=== PATIENT | male | born 1955 | race Caucasian/White ===

== ENCOUNTER 2023-05-08 11:32 | Inpatient (IN) ==
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
[2023-05-08] MEDS ORDERED: LORazepam 2 MG/1 ML VIAL IM STA ×2 (12:25→14:13)
[2023-05-08] MEDS ORDERED: SODIUM CHLORIDE 0.9% 1,000 ML IV SCH (12:30)
[2023-05-08] MEDS ORDERED: LORazepam 2 MG/1 ML VIAL IM ONE (13:15)
[2023-05-08] MEDS ORDERED: LORazepam 1 MG/1 ML SYR ED Inj Use IM STA (14:18)
[2023-05-08] MEDS ORDERED: LORazepam 2 MG/1 ML VIAL IM PRN (15:01)
[2023-05-08 15:25] LABS: Basophils # (auto) 0.06 K/uL (0.00-0.20); Basophils % (auto) 1.1 %; Eosinophils # (auto) 0.54 K/uL (0.00-0.50); Eosinophils % (auto) 10.3 %; Hematocrit (blood only) 37.6 % (42.0-52.0); Hemoglobin 13.3 g/dl (14.0-18.0); Immature Granulocytes # (auto) 0.01 K/uL (0.01-0.20); Immature Granulocytes % (auto) 0.2 %; Lymphocytes # (auto) 1.55 K/uL (1.20-3.40); Lymphocytes % (auto) 29.5 %; Mean Corpuscular Hemoglobin 32.4 pg (25.0-34.0); Mean Corpuscular Hgb Conc 35.4 g/dL (32.0-36.0); Mean Corpuscular Volume 91.5 fL (80.0-100.0); Mean Platelet Volume 11.1 fL (9.4-12.4); Monocytes # (auto) 0.57 K/uL (0.11-0.59); Monocytes % (auto) 10.9 %; Neutrophils # (auto) 2.52 K/uL (1.40-6.50); Platelet Count 147 K/uL (130-400); RDW Coefficient of Variation 12.1 % (11.5-14.5); RDW Standard Deviation 40.8 fL (36.4-46.3); Red Blood Count 4.11 M/uL (4.70-6.10); White Blood Count 5.25 K/ul (4.8-10.8)
[2023-05-08 15:42] LABS: Albumin Level 3.9 gm/dl (3.4-5.0); Anion Gap 7 (3-11); Bilirubin,Total 0.5 mg/dl (0.2-1.0); Calcium 8.7 mg/dl (8.6-10.3); Carbon Dioxide 25 mmol/L (21-32); Chloride 106 mmol/L (98-107); Potassium 4.2 mmol/L (3.5-5.1); Sodium 138 mmol/L (136-145)
[2023-05-08 15:48] LABS: Alanine Aminotransferase 17 U/L (7-52); Albumin Globulin Ratio 2.2 (0.9-2); Alkaline Phosphatase 64 U/L (34-104); Aspartate Aminotransferase 24 U/L (13-39); BUN Creatinine Ratio 25.8 (10-20); Blood Urea Nitrogen 17 mg/dl (6-23); Est GFR (African American) 117.6 ml/min; Est GFR (Non-African American) 101.5 ml/min; Globulin 1.8 gm/dl (2.5-4.0); Glucose 64 mg/dl (70-99(Fasting)); Total Protein 5.7 gm/dl (6.0-8.3)
[2023-05-08 16:01] LABS: Thyroid Stimulating Hormone 7.601 uIu/ml (0.300-4.500)
--- NOTE | 2023-05-08 16:03 | XRay Report ---
XR chest 1V portable CLINICAL HISTORY: weakness TECHNIQUE: Single frontal radiograph of the chest was obtained. Comparison: Comparison is made to chest radiograph 01/19/2023 FINDINGS: No lines and tubes are seen. Cardiomegaly is noted. The lungs are clear. No evidence of pleural effus ion or pneumothorax. IMPRESSION: No acute chest disease. Cardiomegaly is noted. ACT 112: Negative or not required by law. Electronically signed by: Nico Munguia M.D. 05/08/2023 4:02 PM
[2023-05-08] MEDS ORDERED: LORazepam 1 MG/1 ML SYR ED Inj Use IV PRN (16:14)
[2023-05-08] MEDS ORDERED: DEXTROSE 50% 50 ML SYRINGE IV ONE ×3 (16:18→20:04)
--- NOTE | 2023-05-08 16:31 | CT Scan Report ---
CT OF THE HEAD WITHOUT CONTRAST CLINICAL HISTORY: combative COMPARISON STUDY: Head CT January 19, 2023. CT DOSE: 703.85 mGy.cm TECHNIQUE: Helical axial images of the head were obtained without IV contrast. Automated exposure con trol was utilized for the study. A dose lowering technique was utilized adhering to the principles o f ALARA. FINDINGS: No acute intracranial hemorrhage, midline shift or mass effect is present. Ossification kelvin ng the falx is unchanged. This is of no significance. The ventricular system is unremarkable. The bas al cisterns are patent. No extra-axial collections are present. There are no findings to suggest acut e dural sinus thrombosis or acute territorial infarct. No significant calvarial abnormalities are pre sent. Visualized portions of the sinuses and mastoid air cells are clear. IMPRESSION: No acute intracranial findings. ACT 112: Negative or not required by law. Electronically signed by: Miguel Gotti M.D. 05/08/2023 4:30 PM
[2023-05-08 16:44] LABS: T4 Free Thyroxine 0.75 ng/dl (0.61-1.60)
[2023-05-08] MEDS: QUEtiapine FUMARATE 100 MG TABLET PO STA ×2 (18:59→19:45)
[2023-05-08] MEDS ORDERED: HALOPERIDOL LACTATE 5 MG/ML 1 ML VIAL ONE (19:59)
[2023-05-08] MEDS ORDERED: HALOPERIDOL LACTATE 5 MG/ML 1 ML VIAL IV STA (20:03)
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
[2023-05-08] MEDS: D5W AND NSS 1,000 ML IV SCH (20:29)
[2023-05-08] MEDS ORDERED: bisacodyL 10 MG SUPP PR PRN (20:54)
[2023-05-08] MEDS ORDERED: ACETAMINOPHEN 325 MG TAB PO PRN (20:54)
[2023-05-08] MEDS ORDERED: DIVALPROEX SODIUM SPRINKLE/DEL-REL 125 MG CAP PO SCH (21:00)
[2023-05-08] MEDS ORDERED: DIVALPROEX EXTENDED RELEASE 250 MG TABCR PO SCH (21:00)
[2023-05-08] MEDS ORDERED: MIRTAZAPINE TAB 15 MG TAB PO SCH (21:00)
[2023-05-08] MEDS: BACITRACIN OINT 14 GM TUBE EXT SCH (23:07)
[2023-05-08] MEDS ORDERED: VALPROATE SOD 375 MG in DEXTROSE 5% 50 ML IV ONE (23:45)
[2023-05-08] MEDS: Patient's HEIGHT &/or WEIGHT Needed SCH (23:57)
[2023-05-09] MEDS: Patient's HEIGHT &/or WEIGHT Needed SCH ×2 (00:17→00:18)
[2023-05-09] MEDS: D5W AND NSS 1,000 ML IV SCH (05:03)
[2023-05-09] MEDS: DEXTROSE 5% IV SCH ×3 (06:23→19:01)
[2023-05-09] MEDS: VALPROATE SOD IV SCH ×3 (06:23→19:01)
[2023-05-09] MEDS ORDERED: VALPROATE SOD 250 MG in DEXTROSE 5% 50 ML IV SCH (08:00)
[2023-05-09] MEDS ORDERED: ASPIRIN 81 MG ECTAB PO SCH (09:00)
[2023-05-09] MEDS ORDERED: ATORVASTATIN 20 MG TAB PO SCH (09:00)
[2023-05-09] MEDS ORDERED: THIAMINE HCL 100 MG TAB PO SCH (09:00)
[2023-05-09] MEDS ORDERED: ARIPiprazole 5 MG TAB PO SCH (09:00)
[2023-05-09] MEDS ORDERED: PARoxetine HCL 20 MG TAB PO SCH (09:00)
[2023-05-09 09:23] LABS: Basophils # (auto) 0.05 K/uL (0.00-0.20); Basophils % (auto) 1.1 %; Eosinophils # (auto) 0.59 K/uL (0.00-0.50); Eosinophils % (auto) 12.7 %; Hematocrit (blood only) 39.6 % (42.0-52.0); Hemoglobin 13.8 g/dl (14.0-18.0); Immature Granulocytes # (auto) 0.01 K/uL (0.01-0.20); Immature Granulocytes % (auto) 0.2 %; Lymphocytes # (auto) 1.23 K/uL (1.20-3.40); Lymphocytes % (auto) 26.5 %; Mean Corpuscular Hemoglobin 31.6 pg (25.0-34.0); Mean Corpuscular Hgb Conc 34.8 g/dL (32.0-36.0); Mean Corpuscular Volume 90.6 fL (80.0-100.0); Mean Platelet Volume 10.6 fL (9.4-12.4); Monocytes # (auto) 0.53 K/uL (0.11-0.59); Monocytes % (auto) 11.4 %; Neutrophils # (auto) 2.23 K/uL (1.40-6.50); Neutrophils % (auto) 48.1 %; Platelet Count 141 K/uL (130-400); RDW Standard Deviation 39.7 fL (36.4-46.3); Red Blood Count 4.37 M/uL (4.70-6.10); White Blood Count 4.64 K/ul (4.8-10.8)
[2023-05-09 09:37] LABS: BUN Creatinine Ratio 12.9 (10-20); Calcium 8.1 mg/dl (8.6-10.3); Creatinine Clr Calc Pharmacy 114.9 ml/min; Est GFR (African American) 120.7 ml/min; Est GFR (Non-African American) 104.1 ml/min
[2023-05-09] MEDS: OLANZapine 10 MG/2.1 ML SDV IM PRN ×3 (10:35→22:07)
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
--- NOTE | 2023-05-09 11:54 | Hospitalist Progress Note ---
Date of Service May 09, 2023 Assessment & Plan (1) Aggression: Plan: -Aggressive behavior at alf noted in context of progressive Alzheimer's dementia over past several years -Zyprexa IM PRN for acute agitation -Continue Halle [place]te, Paxil, Remeron for now -Psychiatry consulted on admission -Will apparently need placement in locked dementia unit, case management to assist (2) Dementia: Plan: -See above (3) Hypoglycemia: Plan: -Noted hypoglycemia on admission to 60 -Improving with D5 1/2 NSS, continue until tolerating PO intake well with improved mental status -Monitor BMP (4) HLD (hyperlipidemia): Plan: -Continue statin (5) Superficial skin infection: Plan: -Patient noted to have BL superficial skin infection from apparent scratches -Has been afebrile with CBC wnl -Continue Bacitracin -Monitor Admission and Anticipated Discharge Date Admission Date: May 08, 2023 Supervising Physician Co-Signing Physician Notes ATTESTATION I also saw the patient and confirmed clarke portions of the history and exam. I agree with the impression and plan in the resident documentation, and as summarized below. EXAM Upon midmorning exam, the patient is somewhat restless, trying to get out of bed. Temporarily responds to redirection. No meaningful conversation obtained. Hemodynamically stable; heart rate is regular on the monitor. DATA Labs Hemoglobin 13.8, white blood cell count 4.64 Sodium 137, potassium 4.0, BUN 8, creatinine 0.62 Imaging Chest x-ray dated 05/08/2023 shows no acute disease IMPRESSION & PLAN Dementia with agitation Hypoglycemia Medications on hold due to sedation earlier today Psychiatry consultation pending Subjective Acute events overnight- needed IM Haldol for agitation last night shortly after ER arrival. Pt examined at bedside. He is drowsy but denied any acute complaints. Review of Systems Review of Systems: Per HPI/Subjective Physical Exam Physical Exam: Physical Exam: General: In no acute distress, stated age, somnolent HEENT: Normocephalic, atraumatic, dry mucus membranes Chest/Pulm: No respiratory distress, symmetrical chest expansion, clear breath sounds throughout Cardiac: RRR, no murmurs noted Skin: Patient with multiple scratches noted on the BL shins without signs of drainage Neuro: Somnolent Results & Data Results & Data Vital Signs (Past 12 Hours) Vital Signs Temp Pulse Pulse Resp BP Pulse Ox O2 Del Method 05/09/23 10:05 36.4 C L 64 20 124/64 98 Room Air 05/09/23 07:52 65 05/09/23 04:15 64 20 153/90 H 96 Room Air 05/09/23 00:08 67 14 144/89 H 98 Room Air Resident Activity Tracking Resident Involvement: Resident Care Provided Care Provided: Adult Hospital Medicine
[2023-05-09] MEDS: BACITRACIN OINT 14 GM TUBE EXT SCH ×3 (11:58→21:24)
[2023-05-09] MEDS ORDERED: HALOPERIDOL LACTATE 5 MG/ML 1 ML VIAL ONE (14:11)
[2023-05-09] MEDS ORDERED: HALOPERIDOL LACTATE 5 MG/ML 1 ML VIAL IM STA (14:26)
[2023-05-09 14:37] LABS: Appearance Urine Clear (Clear); Bilirubin Urine Negative (Negative); Blood Urine Negative (Negative); Color Urine Yellow; Glucose Urine UA Negative (Negative); Ketones Urine Negative (Negative); Leukocyte Esterase Urine Negative (Negative); Nitrite Urine Negative (Negative); Protein Urine Negative (Negative); Specific Gravity Urine 1.006 (1.000-1.030); Urobilinogen Urine Negative (Negative); pH Urine 7.5 (4.5-7.5)
--- NOTE | 2023-05-09 17:26 | Electrocardiogram Report ---
Test Reason : Blood Pressure : / mmHG Vent. Rate : 067 BPM Atrial Rate : 067 BPM P-R Int : 192 ms QRS Dur : 110 ms QT Int : 400 ms P-R-T Axes : 040 -04 056 degrees QTc Int : 422 ms Normal sinus rhythm Normal ECG When compared with ECG of 19-JAN-2023 13:42, No significant change was found Confirmed by Ignacio Loyola ([id number]) on 05/09/2023 5:26:07 PM Referred By: REFERRED SELF Confirmed By:Wojciech Loyola
[2023-05-09] MEDS ORDERED: diphenhydrAMINE 50 MG/ML VIAL IV STA (19:17)
[2023-05-09] MEDS: QUEtiapine FUMARATE 100 MG TABLET PO SCH (21:24)
[2023-05-09] MEDS: MIRTAZAPINE TAB 15 MG TAB PO SCH (21:24)
[2023-05-10] MEDS: VALPROATE SOD IV SCH ×4 (00:38→19:29)
[2023-05-10] MEDS: DEXTROSE 5% IV SCH ×4 (00:38→19:29)
[2023-05-10] MEDS: OLANZapine 10 MG/2.1 ML SDV IM PRN ×3 (03:20→20:23)
[2023-05-10 06:09] LABS: Basophils # (auto) 0.05 K/uL (0.00-0.20); Basophils % (auto) 0.8 %; Eosinophils # (auto) 0.57 K/uL (0.00-0.50); Eosinophils % (auto) 9.4 %; Hematocrit (blood only) 42.1 % (42.0-52.0); Hemoglobin 14.9 g/dl (14.0-18.0); Immature Granulocytes # (auto) 0.01 K/uL (0.01-0.20); Immature Granulocytes % (auto) 0.2 %; Lymphocytes # (auto) 1.73 K/uL (1.20-3.40); Lymphocytes % (auto) 28.5 %; Mean Corpuscular Hgb Conc 35.4 g/dL (32.0-36.0); Mean Corpuscular Volume 90.3 fL (80.0-100.0); Mean Platelet Volume 10.9 fL (9.4-12.4); Monocytes % (auto) 13.2 %; Neutrophils # (auto) 2.91 K/uL (1.40-6.50); Neutrophils % (auto) 47.9 %; Platelet Count 151 K/uL (130-400); RDW Coefficient of Variation 12.1 % (11.5-14.5); RDW Standard Deviation 39.8 fL (36.4-46.3); Red Blood Count 4.66 M/uL (4.70-6.10); White Blood Count 6.07 K/ul (4.8-10.8)
[2023-05-10 06:15] LABS: BUN Creatinine Ratio 9.9 (10-20); Calcium 9.1 mg/dl (8.6-10.3); Creatinine Clr Calc Pharmacy 100.4 ml/min; Est GFR (African American) 114.1 ml/min; Est GFR (Non-African American) 98.5 ml/min; Potassium 3.7 mmol/L (3.5-5.1)
[2023-05-10] MEDS ORDERED: CARBOHYDRATES FOR HYPOGLYCEMIA PO PRN (07:39)
[2023-05-10] MEDS ORDERED: DEXTROSE 50% 50 ML SYRINGE IV PRN (07:39)
[2023-05-10] MEDS ORDERED: GLUCAGON FOR INJ 1 MG VIAL SQ PRN (07:39)
[2023-05-10] MEDS ORDERED: GLUCOSE 10 TAB/TUBE PO PRN (07:39)
[2023-05-10] MEDS ORDERED: GLUCOSE 40% GEL 15 GM TUBE PO PRN (07:39)
[2023-05-10] MEDS: BACITRACIN OINT 14 GM TUBE EXT SCH ×3 (08:08→21:00)
[2023-05-10] MEDS: QUEtiapine FUMARATE 100 MG TABLET PO SCH ×3 (08:08→20:13)
[2023-05-10] MEDS ORDERED: DONEPEZIL HCL 5 MG TAB PO SCH (09:00)
[2023-05-10] MEDS ORDERED: PARoxetine HCL 20 MG TAB PO SCH (09:00)
[2023-05-10] MEDS: PARoxetine HCL 20 MG TAB PO SCH (10:03)
--- NOTE | 2023-05-10 10:19 | Hospitalist Progress Note ---
Date of Service May 10, 2023 Assessment & Plan (1) Aggression: Plan: -Aggressive behavior at [facility] noted in context of progressive Alzheimer's dementia over past several years -Titrated valproate dose due to subtherapeutic valproate level -Paroxetine increased to 40mg daily -cont. mirtazapine, Seroquel -cont. donepezil -prn seroquel and zyprexa for increased agitation -Psychiatry consulted -patient needs inpatient geropsychiatric treatment to get his behavioral disturbance under control and bed search should be started immediately (2) Dementia: Plan: see above (3) Hypoglycemia: Plan: -Noted hypoglycemia on admission to 60 -cont. D5/NSS IVF - continue until tolerating PO intake well with improved mental status (4) HLD (hyperlipidemia): Plan: -Continue statin (5) Superficial skin infection: Plan: -Patient noted to have BL superficial skin infection from apparent scratches - unclear if scabies. Apparently was treated for this in the outpatient setting. Will try to reach out to [facility] for more information. -may consider Ivermectin as an option if scabies treatment is warranted Admission and Anticipated Discharge Date Admission Date: May 08, 2023 Supervising Physician Co-Signing Physician Notes ATTESTATION I also saw the patient and confirmed clarke portions of the history and exam. I agree with the impression and plan in the resident documentation, and as summarized below. Nursing notes that the patient has been trying to itch. Initial thought was this was neurodermatitis, but nursing learned that the patient may have been diagnosed and/or treated for scabies -unclear exactly what the treatment was and when this was done. EXAM 124/83, 72, 18, 36.1, 100% on room air He is lying supine in bed; padded mittens on, one-to-one observation in room [place] today, ate with assistance; able to take p.o. medications Excoriated areas of the anterior chest, abdominal area; excoriated skin between the toes, at this open this is thickened and a recommend fungal infection Excoriated areas of the knees, bilaterally DATA Labs Hemoglobin 14.9, platelet count 151 Sodium 144, potassium 3.7, BUN 7, creatinine 0.71 Sodium 137, potassium 4.0, BUN 8, creatinine 0.6 IMPRESSION & PLAN Dementia with agitation, improved today Hypoglycemia, resolved Pruritic rash, neurodermatitis versus scabies Psychiatry consultation appreciated; medication changes implemented Unsure if the rash represents scabies; this may have been already appropriately treated, and rash and itching can last for up to 4 to 6 weeks posttreatment Will make effort to confirm if the diagnosis was made and if it was treated; permethrin cream may be difficult logistically, could consider p.o. ivermectin Subjective Patient seen at bedside. Pleasantly agitated, confused. Safety mits on. Review of Systems Review of Systems: Unobtainable due to cognitive status Physical Exam Physical Exam: Constitutional: in no acute distress. Vitals as above. HEENT: No scleral injection or discharge.Dry mucous membranes. Neck: Supple without lymphadenopathy or thyromegaly. Trachea midline. Lungs: CTAB, no wheezes/rales/rhonchi Cardiac: RRR. No murmurs. No lower extremity edema. 2+ distal peripheral pulses. Abdomen: Soft, nontender, and nondistended.No guarding. MSK: No cyanosis or clubbing. Skin: scattered erythematous papules and excoriations Results & Data Results & Data Vital Signs (Past 12 Hours) Vital Signs Temp Pulse Pulse Resp BP BP Pulse Ox 05/10/23 07:24 36.6 C 67 20 158/90 H 97 05/10/23 04:51 36.7 C 66 20 161/71 H 99 05/09/23 23:15 70 05/09/23 22:50 90 O2 Del Method 05/10/23 07:24 Room Air 05/10/23 04:51 Room Air 05/09/23 23:15 05/09/23 22:50 Laboratory Results 05/10/23 05/10/23 05/09/23 Range/Units 05:34 04:34 21:29 WBC 6.07 (4.8-10.8) K/ul RBC 4.66 L (4.70-6.10) M/uL Hgb 14.9 (14.0-18.0) g/dl Hct 42.1 (42.0-52.0) % MCV 90.3 (80.0-100.0) fL MCH 32.0 (25.0-34.0) pg MCHC 35.4 (32.0-36.0) g/dL RDW Std Deviation 39.8 (36.4-46.3) fL RDW Coeff of Bo 12.1 (11.5-14.5) % Plt Count 151 (130-400) K/uL MPV 10.9 (9.4-12.4) fL Immature Gran % (Auto) 0.2 % Neut % (Auto) 47.9 % Lymph % (Auto) 28.5 % [place] % (Auto) 13.2 % Eos % (Auto) 9.4 % Baso % (Auto) 0.8 % Neut # (Auto) 2.91 (1.40-6.50) K/uL Lymph # (Auto) 1.73 (1.20-3.40) K/uL [place] # (Auto) 0.80 H (0.11-0.59) K/uL Eos # (Auto) 0.57 H (0.00-0.50) K/uL Baso # (Auto) 0.05 (0.00-0.20) K/uL Immature Gran # (Auto) 0.01 (0.01-0.20) K/uL Sodium 144 (136-145) mmol/L Potassium 3.7 (3.5-5.1) mmol/L Chloride 110 H (98-107) mmol/L Carbon Dioxide 26 (21-32) mmol/L Anion Gap 8 (3-11) BUN 7 (6-23) mg/dl Creatinine 0.71 (0.6-1.4) mg/dl Est Cr Clr Drug Dosing 100.4 ml/min Est GFR ( Amer) 114.1 ml/min Est GFR (Non-Af Amer) 98.5 ml/min BUN/Creatinine Ratio 9.9 L (10-20) Glucose 85 (70-99(Fasting)) mg/dl POC Glucose 73 69 L* (70-99) mg/dl Calcium 9.1 (8.6-10.3) mg/dl Urine Color Urine Appearance (Clear) Urine pH (4.5-7.5) Ur Specific [place] (1.000-1.030) Urine Protein (Negative) Urine Glucose (UA) (Negative) Urine Ketones (Negative) Urine Blood (Negative) Urine Nitrite (Negative) Urine Bilirubin (Negative) Urine Urobilinogen (Negative) Ur Leukocyte Esterase (Negative) 05/09/23 05/09/23 05/09/23 Range/Units 17:11 16:09 16:07 WBC (4.8-10.8) K/ul RBC (4.70-6.10) M/uL Hgb (14.0-18.0) g/dl Hct (42.0-52.0) % MCV (80.0-100.0) fL MCH (25.0-34.0) pg MCHC (32.0-36.0) g/dL RDW Std Deviation (36.4-46.3) fL RDW Coeff of Bo (11.5-14.5) % Plt Count (130-400) K/uL MPV (9.4-12.4) fL Immature Gran % (Auto) % Neut % (Auto) % Lymph % (Auto) % [place] % (Auto) % Eos % (Auto) % Baso % (Auto) % Neut # (Auto) (1.40-6.50) K/uL Lymph # (Auto) (1.20-3.40) K/uL [place] # (Auto) (0.11-0.59) K/uL Eos # (Auto) (0.00-0.50) K/uL Baso # (Auto) (0.00-0.20) K/uL Immature Gran # (Auto) (0.01-0.20) K/uL Sodium (136-145) mmol/L Potassium (3.5-5.1) mmol/L Chloride (98-107) mmol/L Carbon Dioxide (21-32) mmol/L Anion Gap (3-11) BUN (6-23) mg/dl Creatinine (0.6-1.4) mg/dl Est Cr Clr Drug Dosing ml/min Est GFR ( Amer) ml/min Est GFR (Non-Af Amer) ml/min BUN/Creatinine Ratio (10-20) Glucose (70-99(Fasting)) mg/dl POC Glucose 70 71 57 L* (70-99) mg/dl Calcium (8.6-10.3) mg/dl Urine Color Urine Appearance (Clear) Urine pH (4.5-7.5) Ur Specific [place] (1.000-1.030) Urine Protein (Negative) Urine Glucose (UA) (Negative) Urine Ketones (Negative) Urine Blood (Negative) Urine Nitrite (Negative) Urine Bilirubin (Negative) Urine Urobilinogen (Negative) Ur Leukocyte Esterase (Negative) 05/09/23 Range/Units 13:00 WBC (4.8-10.8) K/ul RBC (4.70-6.10) M/uL Hgb (14.0-18.0) g/dl Hct (42.0-52.0) % MCV (80.0-100.0) fL MCH (25.0-34.0) pg MCHC (32.0-36.0) g/dL RDW Std Deviation (36.4-46.3) fL RDW Coeff of Bo (11.5-14.5) % Plt Count (130-400) K/uL MPV (9.4-12.4) fL Immature Gran % (Auto) % Neut % (Auto) % Lymph % (Auto) % [place] % (Auto) % Eos % (Auto) % Baso % (Auto) % Neut # (Auto) (1.40-6.50) K/uL Lymph # (Auto) (1.20-3.40) K/uL [place] # (Auto) (0.11-0.59) K/uL Eos # (Auto) (0.00-0.50) K/uL Baso # (Auto) (0.00-0.20) K/uL Immature Gran # (Auto) (0.01-0.20) K/uL Sodium (136-145) mmol/L Potassium (3.5-5.1) mmol/L Chloride (98-107) mmol/L Carbon Dioxide (21-32) mmol/L Anion Gap (3-11) BUN (6-23) mg/dl Creatinine (0.6-1.4) mg/dl Est Cr Clr Drug Dosing ml/min Est GFR ( Amer) ml/min Est GFR (Non-Af Amer) ml/min BUN/Creatinine Ratio (10-20) Glucose (70-99(Fasting)) mg/dl POC Glucose (70-99) mg/dl Calcium (8.6-10.3) mg/dl Urine Color Yellow Urine Appearance Clear (Clear) Urine pH 7.5 (4.5-7.5) Ur Specific [place] 1.006 (1.000-1.030) Urine Protein Negative (Negative) Urine Glucose (UA) Negative (Negative) Urine Ketones Negative (Negative) Urine Blood Negative (Negative) Urine Nitrite Negative (Negative) Urine Bilirubin Negative (Negative) Urine Urobilinogen Negative (Negative) Ur Leukocyte Esterase Negative (Negative) Resident Activity Tracking Resident Involvement: Resident Care Provided Care Provided: Adult Hospital Medicine
[2023-05-10] MEDS: D5W AND NSS 1,000 ML IV SCH ×2 (10:31→22:56)
[2023-05-10] MEDS: MIRTAZAPINE TAB 15 MG TAB PO SCH (20:13)
[2023-05-10] MEDS ORDERED: Nursing to Pharmacy Communication SCH (23:45)
[2023-05-11] MEDS: DEXTROSE 5% IV SCH ×4 (01:27→18:33)
[2023-05-11] MEDS: VALPROATE SOD IV SCH ×4 (01:27→18:33)
[2023-05-11] MEDS: OLANZapine 10 MG/2.1 ML SDV IM PRN (01:28)
[2023-05-11 06:39] LABS: Basophils # (auto) 0.04 K/uL (0.00-0.20); Basophils % (auto) 0.7 %; Eosinophils # (auto) 0.33 K/uL (0.00-0.50); Eosinophils % (auto) 5.4 %; Hematocrit (blood only) 41.2 % (42.0-52.0); Hemoglobin 14.5 g/dl (14.0-18.0); Immature Granulocytes # (auto) 0.01 K/uL (0.01-0.20); Immature Granulocytes % (auto) 0.2 %; Lymphocytes # (auto) 1.42 K/uL (1.20-3.40); Lymphocytes % (auto) 23.1 %; Mean Corpuscular Hemoglobin 31.5 pg (25.0-34.0); Mean Corpuscular Hgb Conc 35.2 g/dL (32.0-36.0); Mean Corpuscular Volume 89.6 fL (80.0-100.0); Mean Platelet Volume 10.9 fL (9.4-12.4); Monocytes # (auto) 0.84 K/uL (0.11-0.59); Monocytes % (auto) 13.7 %; Neutrophils % (auto) 56.9 %; Platelet Count 150 K/uL (130-400); RDW Coefficient of Variation 12.1 % (11.5-14.5); RDW Standard Deviation 39.5 fL (36.4-46.3); White Blood Count 6.14 K/ul (4.8-10.8)
[2023-05-11 07:14] LABS: BUN Creatinine Ratio 10.5 (10-20); Calcium 8.9 mg/dl (8.6-10.3); Est GFR (African American) 124.9 ml/min; Est GFR (Non-African American) 107.8 ml/min; Magnesium 1.9 mg/dl (1.7-2.4)
--- NOTE | 2023-05-11 09:47 | Hospitalist Progress Note ---
Date of Service May 11, 2023 Assessment & Plan (1) Aggression: Plan: -Aggressive behavior at residential noted in context of progressive Alzheimer's dementia over past several years -Titrated valproate dose due to subtherapeutic valproate level -Paroxetine increased to 40mg daily -cont. mirtazapine, Seroquel -cont. donepezil -prn seroquel and zyprexa for increased agitation -Psychiatry consulted -patient needs inpatient geropsychiatric treatment to get his behavioral disturbance under control and bed search should be started immediately (2) Dementia: Plan: see above (3) Hypoglycemia: Plan: -Noted hypoglycemia on admission to 60 -cont. D5/NSS IVF - continue until tolerating PO intake well with improved mental status (4) HLD (hyperlipidemia): Plan: -Continue statin (5) Superficial skin infection: Plan: -Patient noted to have BL superficial skin excoriations from apparent scratches - scabies has been considered, however, per the rash has been present since July 2022 and outpatient skin scraping was negative for scabies. -dermatology consulted - may need to call derm office tomorrow during business hours to notify them of consultation Admission and Anticipated Discharge Date Admission Date: May 08, 2023 Supervising Physician Co-Signing Physician Notes ATTESTATION I also saw the patient and confirmed clarke portions of the history and exam. I agree with the impression and plan in the resident documentation, and as summarized below. Remains on one-to-one; more calm today. Has now gone for 24 hours plus on oral medication regimen. EXAM 132/85, 63, 16, 36.4, high percent on room air He is lying supine in bed; padded mittens on, one-to-one observation in room Turns to voice; no meaningful interaction otherwise. Excoriated areas of the anterior chest, abdominal area; excoriated skin between the toes, at this open this is thickened and a recommend fungal infection Excoriated areas of the knees, bilaterally IMPRESSION & PLAN Dementia with agitation, improved today Hypoglycemia, resolved Pruritic rash, neurodermatitis versus scabies Psychiatry consultation appreciated; medication changes implemented Unsure if the rash represents scabies; per patient's , scabies "test" was negative previously, though unclear if there is any diagnosis made with regards to the rash Fair amount of excoriation; certainly seems to bother patient. Unfortunately he cannot provide any context to help with diagnosis Agree with dermatology consult Case management working on placement in a secure dementia unit Subjective Patient seen at bedside. Pleasantly agitated, confused. Safety mits on. Review of Systems Review of Systems: All systems reviewed & are unremarkable except as noted in HPI & below Physical Exam Physical Exam: Constitutional: in no acute distress. Vitals as above. HEENT: No scleral injection or discharge.Dry mucous membranes. Neck: Supple without lymphadenopathy or thyromegaly. Trachea midline. Lungs: CTAB, no wheezes/rales/rhonchi Cardiac: RRR. No murmurs. No lower extremity edema. 2+ distal peripheral pulses. Abdomen: Soft, nontender, and nondistended.No guarding. MSK: No cyanosis or clubbing. Skin: scattered erythematous papules and excoriations Results & Data Results & Data Vital Signs (Past 12 Hours) Vital Signs Temp Pulse Resp BP Pulse Ox O2 Del Method 05/11/23 09:33 36.4 C L 63 16 172/85 H 100 Room Air 05/10/23 22:39 36.5 C 79 16 164/91 H 98 Room Air Laboratory Results 05/11/23 05/11/23 05/11/23 Range/Units 05:53 05:48 00:07 WBC 6.14 (4.8-10.8) K/ul RBC 4.60 L (4.70-6.10) M/uL Hgb 14.5 (14.0-18.0) g/dl Hct 41.2 L (42.0-52.0) % MCV 89.6 (80.0-100.0) fL MCH 31.5 (25.0-34.0) pg MCHC 35.2 (32.0-36.0) g/dL RDW Std Deviation 39.5 (36.4-46.3) fL RDW Coeff of Bo 12.1 (11.5-14.5) % Plt Count 150 (130-400) K/uL MPV 10.9 (9.4-12.4) fL Immature Gran % (Auto) 0.2 % Neut % (Auto) 56.9 % Lymph % (Auto) 23.1 % [place] % (Auto) 13.7 % Eos % (Auto) 5.4 % Baso % (Auto) 0.7 % Neut # (Auto) 3.50 (1.40-6.50) K/uL Lymph # (Auto) 1.42 (1.20-3.40) K/uL [place] # (Auto) 0.84 H (0.11-0.59) K/uL Eos # (Auto) 0.33 (0.00-0.50) K/uL Baso # (Auto) 0.04 (0.00-0.20) K/uL Immature Gran # (Auto) 0.01 (0.01-0.20) K/uL Sodium 142 (136-145) mmol/L Potassium 4.0 (3.5-5.1) mmol/L Chloride 111 H (98-107) mmol/L Carbon Dioxide 25 (21-32) mmol/L Anion Gap 6 (3-11) BUN 6 (6-23) mg/dl Creatinine 0.57 L (0.6-1.4) mg/dl Est Cr Clr Drug Dosing 125.0 ml/min Est GFR ( Amer) 124.9 ml/min Est GFR (Non-Af Amer) 107.8 ml/min BUN/Creatinine Ratio 10.5 (10-20) Glucose 96 (70-99(Fasting)) mg/dl POC Glucose 96 82 (70-99) mg/dl Calcium 8.9 (8.6-10.3) mg/dl Magnesium 1.9 (1.7-2.4) mg/dl 05/10/23 05/10/23 Range/Units 17:44 11:42 WBC (4.8-10.8) K/ul RBC (4.70-6.10) M/uL Hgb (14.0-18.0) g/dl Hct (42.0-52.0) % MCV (80.0-100.0) fL MCH (25.0-34.0) pg MCHC (32.0-36.0) g/dL RDW Std Deviation (36.4-46.3) fL RDW Coeff of Bo (11.5-14.5) % Plt Count (130-400) K/uL MPV (9.4-12.4) fL Immature Gran % (Auto) % Neut % (Auto) % Lymph % (Auto) % [place] % (Auto) % Eos % (Auto) % Baso % (Auto) % Neut # (Auto) (1.40-6.50) K/uL Lymph # (Auto) (1.20-3.40) K/uL [place] # (Auto) (0.11-0.59) K/uL Eos # (Auto) (0.00-0.50) K/uL Baso # (Auto) (0.00-0.20) K/uL Immature Gran # (Auto) (0.01-0.20) K/uL Sodium (136-145) mmol/L Potassium (3.5-5.1) mmol/L Chloride (98-107) mmol/L Carbon Dioxide (21-32) mmol/L Anion Gap (3-11) BUN (6-23) mg/dl Creatinine (0.6-1.4) mg/dl Est Cr Clr Drug Dosing ml/min Est GFR ( Amer) ml/min Est GFR (Non-Af Amer) ml/min BUN/Creatinine Ratio (10-20) Glucose (70-99(Fasting)) mg/dl POC Glucose 90 106 H (70-99) mg/dl Calcium (8.6-10.3) mg/dl Magnesium (1.7-2.4) mg/dl Resident Activity Tracking Resident Involvement: Resident Care Provided Care Provided: Adult Hospital Medicine
[2023-05-11] MEDS: PARoxetine HCL 20 MG TAB PO SCH (10:15)
[2023-05-11] MEDS: QUEtiapine FUMARATE 100 MG TABLET PO SCH ×3 (10:16→19:51)
[2023-05-11] MEDS: D5W AND NSS 1,000 ML IV SCH ×2 (10:29→19:53)
[2023-05-11] MEDS: BACITRACIN OINT 14 GM TUBE EXT SCH ×2 (19:48)
[2023-05-11] MEDS: MIRTAZAPINE TAB 15 MG TAB PO SCH (19:49)
[2023-05-11] MEDS: DONEPEZIL HCL 5 MG TAB PO SCH (19:49)
[2023-05-12] MEDS: VALPROATE SOD IV SCH ×4 (00:50→18:19)
[2023-05-12] MEDS: DEXTROSE 5% IV SCH ×4 (00:50→18:19)
[2023-05-12] MEDS: D5W AND NSS 1,000 ML IV SCH ×2 (05:48→17:15)
--- NOTE | 2023-05-12 07:43 | Hospitalist Progress Note ---
Date of Service May 12, 2023 Assessment & Plan (1) Aggression: Plan: -[facility] noted in context of progressive Alzheimer's dementia over past several years -Titrated valproate dose due to subtherapeutic valproate level -Paroxetine increased to 40mg daily -cont. mirtazapine, Seroquel -cont. donepezil -prn seroquel and zyprexa for increased agitation -Psychiatry consulted -patient needs inpatient geropsychiatric treatment to get his behavioral disturbance under control and bed search should be started immediately (2) Dementia: Plan: see above (3) Hypoglycemia: Plan: -Noted hypoglycemia on admission to 60 -cont. D5/NSS IVF - continue until tolerating PO intake well with improved mental status (4) HLD (hyperlipidemia): Plan: -Continue statin (5) Superficial skin infection: Plan: -Patient noted to have BL superficial skin excoriations from apparent scratches - scabies has been considered, however, per the rash has been present since July 2022 and outpatient skin scraping was negative for scabies. -dermatology consulted Admission and Anticipated Discharge Date Admission Date: May 08, 2023 Supervising Physician Co-Signing Physician Notes ATTESTATION I personally examined the patient and verified all clarke points of history and exam, discussed case, and agree with decision making with Dr Amezcua no new issues have come up. vitals noted laying in bed sleeping nad heent nc at mmm breathing unlabored no accessory muscles good effort skin no rashes no pallor or icterus IMPRESSION & PLAN Dementia with agitation,continue current care, working on geriatric psych bed; lives chronically in locked dementia unit Hypoglycemia, resolved Pruritic rash, neurodermatitis versus scabies Psychiatry consultation appreciated; medication changes implemented Unsure if the rash represents scabies; as noted in prior documentation, per patient's , scabies "test" was negative previously, though unclear if there is any diagnosis made with regards to the rash await dermatology consult, could also treat empirically Subjective Pt seen at bedside this morning. Safety mitts in place. Resting comfortably. Review of Systems Review of Systems: As per above Physical Exam Physical Exam: Constitutional: well-appearing, no acute distress HEENT: NCAT, no conjunctival injection CV: regular rhythm, no murmur appreciated, extremities well-perfused, no LE edema Resp: CTABL, no wheezes/rales/rhonchi appreciated, no increased work of breathing GI: soft, nondistended, nontender MSK: no gross deformities appreciated Skin: warm, dry, + scattered erythematous papules and excoriations Neuro: no focal neurologic deficit appreciated Results & Data Results & Data Vital Signs (Past 12 Hours) Vital Signs Temp Pulse Pulse Resp BP Pulse Ox O2 Del Method 05/12/23 07:34 36.5 C 72 18 170/88 H 99 Room Air 05/11/23 19:56 36.7 C 75 16 151/83 H 98 Room Air 05/11/23 19:49 Room Air Resident Activity Tracking Resident Involvement: Resident Care Provided Care Provided: Adult Hospital Medicine
[2023-05-12] MEDS: QUEtiapine FUMARATE 100 MG TABLET PO SCH ×3 (08:25→20:29)
[2023-05-12] MEDS: BACITRACIN OINT 14 GM TUBE EXT SCH ×3 (08:26→20:27)
[2023-05-12] MEDS: PARoxetine HCL 20 MG TAB PO SCH (08:26)
--- NOTE | 2023-05-12 12:47 | Billing Data ---
Date of Service May 12, 2023 Coding Level of Care Code 48609 SUB INP/OBS CARE
--- NOTE | 2023-05-12 12:54 | Dermatology Consultation ---
Date of Consultation May 12, 2023 Assessment & Plan (1) Eczematous dermatitis: Exam is most c/w/ eczema, and involvement seems mostly limited to the legs on exam today. He does not have involvement in other areas (i.e. groin, axilla) that would be suggestive of scabetic infestation, and record suggests that he was already empirically treated for this. I do not see any signs of secondary infection on exam today. Recommend starting clobetasol 0.05% ointment to areas of the legs twice daily x 2 weeks. Call if there is worsening despite topical treatment. Thanks for the consult. Present on Admission?: Yes History of Present Illness Reason for Consultation: Rash Attending Physician: Larry Dietrich, DO History of Present Illness Patient is a 67 y/o WM admitted to [facility] on 05/08/2023 from personal custodial for increased aggressive behavior towards staff. He has a past medical history significant for Alzheimer's dementia, depression, hypertension and hyperlipidemia. I have been consulted for evaluation of a pruritic rash involving areas of the trunk and extremities as reported by nursing staff. History has been taken from the medical record as patient is not able to give specific details about the rash aside from it being itchy. According to medical record, this is been present for 6 to 9 months. He apparently had a scraping done previously as an outpatient that was negative for scabies, but documentation suggests that he was previously treated empirically for this anyways. He has not been receiving any particular treatment since his admission. Allergies Allergy/AdvReac Type Severity Reaction Status Date / Time Penicillins Allergy Unknown UNKNOWN ON Verified 12/01/22 18:26 [facility] risperidone Allergy Unknown UNKNOWN ON Verified 12/01/22 18:26 [facility] trazodone Allergy Unknown UNKNOWN ON Verified 12/01/22 18:26 [facility] prednisone AdvReac Agitated Verified 12/01/22 18:28 Home Medications Medication Instructions Recorded Confirmed Type acetaminophen 325 mg tablet 650 mg PO Q6H PRN PAIN/FEVER 12/01/22 05/08/23 History (Tylenol) atorvastatin 10 mg tablet 20 mg PO DAILY 12/01/22 05/08/23 History cholecalciferol (vitamin D3) 25 1,000 unit PO DAILY 12/01/22 05/08/23 History mcg (1,000 unit) capsule (Vitamin D3) divalproex 125 mg capsule,delayed See Rx Instructions .Route .COMPLEX 12/01/22 05/08/23 History release sprinkle (Depakote Sprinkles) melatonin 3 mg tablet 3 mg PO HS 12/01/22 05/08/23 History mirtazapine 7.5 mg tablet 7.5 mg PO HS 12/01/22 05/08/23 History multivitamin with minerals 1 tab PO DAILY 12/01/22 05/08/23 History (Multiple Vitamin-Minerals tablet) paroxetine HCl 20 mg tablet 20 mg PO DAILY 12/01/22 05/08/23 History quetiapine 100 mg tablet (Seroquel) 100 mg PO Q8 12/01/22 05/08/23 History quetiapine 50 mg tablet (Seroquel) 50 mg PO Q8 12/01/22 05/08/23 History sennosides 8.6 mg-docusate sodium 1 tab-cap PO HS 12/01/22 05/08/23 History 50 mg capsule (Senna Plus) thiamine HCl (vitamin B1) 100 mg 100 mg PO DAILY 12/01/22 05/08/23 History tablet (Vitamin B-1) Milk of Magnesia 1,200 mg PO DIRECTED PRN 05/08/23 05/08/23 History Constipation acetaminophen 325 mg tablet 650 mg Q6 PRN Pain, Mild 05/08/23 05/08/23 History ammonium lactate 12 % topical cream 1 applic topical BID 05/08/23 05/08/23 History aripiprazole 5 mg tablet (Abilify) 5 mg PO DAILY 05/08/23 05/08/23 History aspirin 81 mg tablet,delayed 81 mg PO DAILY 05/08/23 05/08/23 History release bisacodyl 10 mg rectal suppository 10 mg AL DAILY PRN Constipation 05/08/23 05/08/23 History (Dulcolax (bisacodyl)) cetirizine 10 mg tablet 10 mg HS 05/08/23 05/08/23 History clindamycin HCl 300 mg PO Q8 05/08/23 05/08/23 History divalproex 125 mg capsule,delayed 125 mg PO DAILY 05/08/23 05/08/23 History release sprinkle divalproex 125 mg capsule,delayed 125 mg PO HS 05/08/23 05/08/23 History release sprinkle lanolin alcohols-mineral 1 applic topical BID 05/08/23 05/08/23 History oil-w.petrolatum-ceresin topical cream (Eucerin topical cream) quetiapine 100 mg tablet 25 mg PO BID PRN Agitation 05/08/23 05/08/23 History Patient History Medical History (Updated 05/12/23 @ 12:52 by Edin Tee MD) Eczematous dermatitis Major neurocognitive disorder due to Alzheimer's disease, with behavioral disturbance HLD (hyperlipidemia) Dementia Social History Smoking Status: Unknown if ever smoked Second Hand Exposure: No; Do You Dip or Chew Tobacco: No; Hx Alcohol Use: No Hx Substance Use: No Preferred Language: Persian Communication Ability: Impaired Irrigation Engineer Required: No Beliefs That Will Affect Care: None Current Living Situation: Custodial Feels Safe at Home: Yes Assistive Devices: Walker Review of Systems Review of Systems: All systems reviewed & are unremarkable except as noted in Subjective Physical Exam Physical Exam: General Appearance:Awake and cooperative; no oriented to time and place; no acute distress Skin Type:2 Face:no sign of active dermatitis on exam today. Eyelids/Ocular Mucosa: no abnormalities noted. Lips/Teeth/Gums: no abnormalities noted. Neck: no sign of active dermatitis on exam today. Right Lower Extremity:poorly-demarcated, erythematous, scaly thin plaques on the dorsal foot, ankle, clemente, thigh; +associated linear excoriations Left Lower Extremity:poorly-demarcated, erythematous, scaly thin plaques on the dorsal foot, ankle, clemente, thigh; +associated linear excoriations Back:no sign of active dermatitis on exam today. Buttocks/Groin/Genitalia: no sign of active dermatitis on exam today. Right Upper Extremity:no sign of active dermatitis on exam today. Left Upper Extremity:no sign of active dermatitis on exam today. Chest/Breast/Axillae:no sign of active dermatitis on exam today. Abdomen:no sign of active dermatitis on exam today. Results & Data Vital Signs (Past 12 Hours) Vital Signs Temp Pulse Resp BP Pulse Ox O2 Del Method 05/12/23 07:55 Room Air 05/12/23 07:34 36.5 C 72 18 170/88 H 99 Room Air Laboratory Results 05/12/23 05/12/23 05/12/23 Range/Units 11:58 07:32 05:46 POC Glucose 103 H 97 114 H (70-99) mg/dl 05/12/23 05/11/23 Range/Units 00:14 18:22 POC Glucose 114 H 100 H (70-99) mg/dl Remainder of labs reviewed in [facility]. Diagnostic Findings Imaging results reviewed in [facility]. Medications Administered MAR reviewed in [facility]. PG Care Time/CCT Total # of Minutes Spent Total Time Spent with Patient: Total time spent is greater than 50% in coordination of care (as documented) at patient's floor/unit and/or counseling patient: Coding Level of Care Code 38679 INT INP/OBS CARE MIN Diagnoses Eczema, unspecified type L30.9 Eczema type: unspecified (1) Eczematous dermatitis Eczema type: unspecified Qualified Code(s): L30.9 - Dermatitis, unspecified
--- NOTE | 2023-05-12 15:37 | Communication Note ---
Date of Service: May 12, 2023 Scant change has been documented. Pt is disoriented, doesn't respond to questions or directions, intermittently seems to want to get up and go somewhere but has not been speaking so this can at most be imputed from his behavior. He seems not to understand why personal care is being done and to see it as intrusive or threatening so acts in a resistive fashion and at time swings his arms. Medication changes recommended on 05/09/2023 have, for the most part, been made. Valproic acid was increased 3 days ago, so checking a level would be appropriate. The 302 application from admission was denied by the delegate because pt has no clear psychiatric diagnosis (and involuntary emergency psychiatric admission can't be done purely on the basis of dementia). It's abundantly clear that Mr. Escalante does not have decision-making capacity; he shows no evidence of understanding his medical needs or treatments, and in any event would no be capable of expressing his thoughts or preferences regarding this. He will require substituted judgment either from an [id number] designated in a power of corporate associate attorney made at some time in the past, or he'll need a guardian. Recommendations * spooling supervisor should start geropsychiatric bed search immediately * spooling supervisor should establish whether pt has a power of corporate associate attorney * Check a trough valproate level this evening or tomorrow; titrated valproate dose with a target of 80-120 mcg/mL * Pt may benefit from increasing donepezil to 10 mg daily
[2023-05-12] MEDS: CLOBETASOL PROPIONATE 0.05% OINT 15 GM TUBE EXT SCH (20:28)
[2023-05-12] MEDS: DONEPEZIL HCL 5 MG TAB PO SCH (20:28)
[2023-05-12] MEDS: MIRTAZAPINE TAB 15 MG TAB PO SCH (20:28)
[2023-05-13] MEDS: DEXTROSE 5% IV SCH ×4 (00:58→18:19)
[2023-05-13] MEDS: VALPROATE SOD IV SCH ×4 (00:58→18:19)
[2023-05-13] MEDS: D5W AND NSS 1,000 ML IV SCH (01:00)
[2023-05-13] MEDS: QUEtiapine FUMARATE 25 MG TABLET PO PRN ×2 (03:52→17:11)
--- NOTE | 2023-05-13 07:14 | Hospitalist Progress Note ---
Date of Service May 13, 2023 Assessment & Plan (1) Aggression: Plan: -Aggressive behavior at correction noted in context of progressive Alzheimer's dementia over past several years -Titrated valproate dose due to subtherapeutic valproate level- will order vero proic acid with next set of labs per pysch recommnedations -Paroxetine increased to 40mg daily -cont. mirtazapine, Seroquel -cont. donepezil -prn seroquel and zyprexa for increased agitation -Psychiatry consulted -patient needs inpatient geropsychiatric treatment to get his behavioral disturbance under control and bed search should be started immediately (2) Dementia: Plan: see above (3) Hypoglycemia: Plan: -Noted hypoglycemia on admission to 60 -d/c D5/NSS IVF - q6H glucose check - hypogymemia (4) HLD (hyperlipidemia): Plan: -Continue statin (5) Superficial skin infection: Plan: -dermatology consulted Admission and Anticipated Discharge Date Admission Date: May 08, 2023 Supervising Physician Co-Signing Physician Notes ATTESTATION I personally examined the patient and verified all clarke points of history and exam, discussed case, and agree with decision making with Dr Amezcua nursing notes no BM. pt sleeping when i see him. vitals noted laying in bed sleeping nad heent nc at mmm breathing unlabored no accessory muscles good effort skin no pallor or icterus IMPRESSION & PLAN Dementia with agitation,continue current care, working on geriatric psych bed; lives chronically in locked dementia unit Hypoglycemia, resolved eczematous rash Psychiatry consultation appreciated; medication changes implemented no scabies - eczematous per derm bowel regimen Subjective Pt seen at bedside this morning. Mitts in place. Awake, no acute distress. Looks comfortable. Spoke with , Shama, and gave her update. She notes that he has been to [facility] twice before for inpatient pysch treatement. Review of Systems Review of Systems: As per above Physical Exam Physical Exam: Constitutional: well-appearing, no acute distress HEENT: NCAT, no conjunctival injection CV: regular rhythm, no murmur appreciated, extremities well-perfused, no LE edema Resp: CTABL, no wheezes/rales/rhonchi appreciated, no increased work of breathing GI: soft, nondistended, nontender MSK: no gross deformities appreciated Skin: warm, dry, + scattered erythematous papules and excoriations Neuro: no focal neurologic deficit appreciated Results & Data Results & Data Vital Signs (Past 12 Hours) Vital Signs Temp Pulse Resp BP Pulse Ox O2 Del Method 05/12/23 20:28 Room Air 05/12/23 20:23 36.8 C 78 18 152/76 H 98 Room Air Resident Activity Tracking Resident Involvement: Resident Care Provided Care Provided: Adult Hospital Medicine
[2023-05-13] MEDS: QUEtiapine FUMARATE 100 MG TABLET PO SCH ×3 (08:30→21:49)
[2023-05-13] MEDS: PARoxetine HCL 20 MG TAB PO SCH (08:30)
[2023-05-13] MEDS: CLOBETASOL PROPIONATE 0.05% OINT 15 GM TUBE EXT SCH ×2 (08:31→21:47)
[2023-05-13 08:50] LABS: Basophils # (auto) 0.03 K/uL (0.00-0.20); Basophils % (auto) 0.5 %; Eosinophils # (auto) 0.25 K/uL (0.00-0.50); Hematocrit (blood only) 38.1 % (42.0-52.0); Hemoglobin 13.5 g/dl (14.0-18.0); Immature Granulocytes # (auto) 0.02 K/uL (0.01-0.20); Immature Granulocytes % (auto) 0.3 %; Lymphocytes # (auto) 1.11 K/uL (1.20-3.40); Lymphocytes % (auto) 17.9 %; Mean Corpuscular Hemoglobin 31.7 pg (25.0-34.0); Mean Corpuscular Hgb Conc 35.4 g/dL (32.0-36.0); Mean Corpuscular Volume 89.4 fL (80.0-100.0); Mean Platelet Volume 10.8 fL (9.4-12.4); Monocytes # (auto) 0.86 K/uL (0.11-0.59); Monocytes % (auto) 13.9 %; Neutrophils # (auto) 3.92 K/uL (1.40-6.50); Neutrophils % (auto) 63.4 %; Platelet Count 133 K/uL (130-400); RDW Coefficient of Variation 12.3 % (11.5-14.5); RDW Standard Deviation 40.3 fL (36.4-46.3); Red Blood Count 4.26 M/uL (4.70-6.10); White Blood Count 6.19 K/ul (4.8-10.8)
[2023-05-13 09:12] LABS: Calcium 8.8 mg/dl (8.6-10.3); Creatinine Clr Calc Pharmacy 142.5 ml/min; Est GFR (African American) 131.8 ml/min; Est GFR (Non-African American) 113.7 ml/min; Potassium 3.7 mmol/L (3.5-5.1)
--- NOTE | 2023-05-13 13:39 | Communication Note ---
Date of Service: May 13, 2023 in discussion with psychiatric team 302 paperwork required to be able to facilitate geriatric psych stay, which is his (decision maker's) clear preference as well as the preference of his home facility. to this end, i completed 302 box B warrant @[id number] because the patient is in need of inpatient treatment for behavioral disturbance related to neurocognitive disorder.
--- NOTE | 2023-05-13 13:39 | Psychiatric Progress Note ---
Date of Service May 13, 2023 Impression / Recommendations Impression 67 y/o M with Major Neurocognitive Disorder with Behavioral Disturbance. 05/13/2023: On approach, pt lies quietly sleeping. He wakes easily but appears startled and remains somewhat drowsy throughout my assessment. He is orient to his full name (which he provides when asked simply "what is your name?") but not to place ("where is this the place") or time ("Friday, Friday, Friday"). When asked "how are you feeling"? responds "watching a little TV". All other responses to questions are very disjointed and unintelligible. He opens his eyes when awakened but never actually looks in my direction. He moves his hands throughout the assessment, fiddling constantly with his blankets. At several points he seems to look directly at something past my left shoulder (not in the direction of the TV, which was on). He says "well..." and "not that" while I observe him quietly, not asking any questions or saying anything. My impression is that he is experiencing auditory and visual hallucinations and is responding at least to auditory hallucinations. He appears to feel threatened at times, and documentation by nursing staff reflects that he acts as if he feels threatened sometimes during care. He meets criteria for section 302 emergency involuntary psychiatric admission on the basis of his inability to care for himself (or to be cared for) safely at a less-restrictive level of care. He requires geropsychiatric hospitalization for safety, stabilization, and medication adjustment. Pt has been accepting oral medication. He has not required any IM medication since 05/11/2023. (1) Major neurocognitive disorder due to Alzheimer's disease, with behavioral disturbance: Plan * pt continues to need inpatient geropsychiatric treatment to get his behavioral disturbance under control and bed search is underway * I note a valproate level has been ordered for tomorrow; titrate valproate to a target trough concentration of 80-120 mcg/mL * pt may benefit from increasing donepezil to 10 mg daily * continue mirtazapine 7.5 mg QHS * continue paroxetine 40 mg daily * continue quetiapine 150 mg TID Suicide Risk Level Suicide Risk Level: Low (q15 min observation checks) (has not voiced or evidenced any suicidal thoughts) Risk Factors Assessment Male: Yes : Yes Do You Have Access To A Gun?: No Health Problems: Yes Mental Health Diagnoses: Yes Substance Use Disorders: No Previous Attempt: No Previous Psychiatric Hospitalization: No Hopelessness: No Protective Factors Assessment : Yes Responsible for Young Children: No Employed: No Interval History Identifying Information LILIA CORTÉS is a 67-year-old M with a history of dementia, admitted on 05/08/2023 for behavioral disturbance. Consult is by the hospitalist service for "Agitation/aggression; need for dementia unti". Chief Complaint "What the who?". Subjective Subjective The patient was seen and assessed and interval progress reviewed in a multidisciplinary team meeting with psychiatric liaison nursing and social work. For details, see the "Impression" section. Overall I spent a total of 38 minutes for this consultation follow-up including review of chart records, review of test results, direct evaluation of the patient [id number], recommending medication, completion of commitment forms, risk assessment, discussion with the psychiatric liaison nurse, and documentation in the electronic health record. Physical Exam Psychiatric Orientation: oriented to person (provided full name) and cooperative; + not alert, + not oriented to place ("Where is this the place?") and + not oriented to time ("Friday, Friday, Friday") Apperance: appropriately dressed and appropriately groomed Eye Contact: + poor eye contact Motor Behavior: + psychomotor agitation (moved constantly, fiddled with blankets) Speech: normal rate/rhythm/volume of speech (but nonsensical) Affect: + constricted affect Mood: no irritable mood and no angry mood Thought Process: + incoherent thought process; + thought process not goal directed, + thought process not linear or logical and + thought process not clear or coherent Thought Content: + paranoid Suicidal Thoughts: denies suicidal thoughts, denies suicidal plan and denies suicidal intent Homicidal Thoughts: denies homicidal thoughts Hallucinations: + auditory hallucinations (based on observed behavior) and + visual hallucinations (based on observed behavior) Cognition: + recent memory not intact, + remote memory not intact, + attention not intact and + language not intact Estimated Intelligence: consistent with education level Insight: + severely impaired insight Judgment: + severely impaired judgement Vital Signs (Past 24 Hours) Last Vital Signs Temp 36.5 C 05/13/23 08:09 Pulse 71 05/13/23 08:09 Resp 16 05/13/23 08:09 BP 161/75 H 05/13/23 08:09 Pulse Ox 98 05/13/23 08:09 O2 Del Method Room Air 05/13/23 08:09 Results & Data ([facility]) Laboratory Results Laboratory Results - last 24 hr 05/12/23 05/13/23 05/13/23 18:17 00:12 06:18 WBC RBC Hgb Hct MCV MCH MCHC RDW Std Deviation RDW Coeff of Bo Plt Count MPV Immature Gran % (Auto) Neut % (Auto) Lymph % (Auto) Holmes % (Auto) Eos % (Auto) Baso % (Auto) Neut # (Auto) Lymph # (Auto) Holmes # (Auto) Eos # (Auto) Baso # (Auto) Immature Gran # (Auto) Sodium Potassium Chloride Carbon Dioxide Anion Gap BUN Creatinine Est Cr Clr Drug Dosing Est GFR ( Amer) Est GFR (Non-Af Amer) BUN/Creatinine Ratio Glucose POC Glucose 111 H 107 H 95 Calcium 05/13/23 05/13/23 08:22 11:52 WBC 6.19 RBC 4.26 L Hgb 13.5 L Hct 38.1 L MCV 89.4 MCH 31.7 MCHC 35.4 RDW Std Deviation 40.3 RDW Coeff of Bo 12.3 Plt Count 133 MPV 10.8 Immature Gran % (Auto) 0.3 Neut % (Auto) 63.4 Lymph % (Auto) 17.9 Holmes % (Auto) 13.9 Eos % (Auto) 4.0 Baso % (Auto) 0.5 Neut # (Auto) 3.92 Lymph # (Auto) 1.11 L Holmes # (Auto) 0.86 H Eos # (Auto) 0.25 Baso # (Auto) 0.03 Immature Gran # (Auto) 0.02 Sodium 140 Potassium 3.7 Chloride 110 H Carbon Dioxide 26 Anion Gap 4 BUN 5 L Creatinine 0.50 L Est Cr Clr Drug Dosing 142.5 Est GFR ( Amer) 131.8 Est GFR (Non-Af Amer) 113.7 BUN/Creatinine Ratio 10.0 Glucose 132 H POC Glucose 97 Calcium 8.8 Current Inpatient Medications Current Inpatient Medications: Current Inpatient Medications Bacitracin (Bacitracin Oint 14 Gm Tube) 1 appln EXT TID ANABEL Stop: 06/07/23 20:59 Last Admin: 01/29/24 20:27 Dose: Not Given Bisacodyl (Bisacodyl 10 Mg Supp) 10 mg NM DAILY PRN PRN Reason: Constipation Stop: 06/07/23 20:53 Clobetasol Propionate (Clobetasol Propionate 0.05% Oint 15 Gm Tube) 1 appln EXT BID ANABEL Stop: 06/11/23 20:59 Last Admin: 05/13/23 08:31 Dose: 1 appln Dextrose (Dextrose 50% 50 Ml Syringe) 25 - 50 ml IV UD PRN; Protocol PRN Reason: Hypoglycemia Protocol Stop: 06/09/23 07:38 Donepezil HCl (Donepezil Hcl 5 Mg Tab) 5 mg PO HS ANABEL Stop: 06/10/23 20:59 Last Admin: 05/12/23 20:28 Dose: 5 mg Glucagon (Glucagon For Inj 1 Mg Vial) 1 mg SQ UD PRN; Protocol PRN Reason: Hypoglycemia Protocol Stop: 06/09/23 07:38 Glucose (Glucose 10 Tab/Tube) 4 - 8 tab PO UD PRN; Protocol PRN Reason: Hypoglycemia Treatment Stop: 06/09/23 07:38 Glucose (Glucose 40% Gel 15 Gm Tube) 15 - 30 gm PO UD PRN; Protocol PRN Reason: Hypoglycemia Protocol Stop: 06/09/23 07:38 Valproic Acid 190 mg/ Dextrose 51.9 mls @ 55 mls/hr IV Q6H ANABEL Stop: 06/08/23 18:59 Last Admin: 05/13/23 12:23 Dose: 55 mls/hr Mirtazapine (Mirtazapine Tab 15 Mg Tab) 7.5 mg PO HS ANABEL Stop: 06/08/23 20:59 Last Admin: 05/12/23 20:28 Dose: 7.5 mg Miscellaneous (Carbohydrates For Hypoglycemia ) 15 - 30 gm PO UD PRN PRN Reason: Hypoglycemia Protocol Stop: 06/09/23 07:38 Olanzapine (Olanzapine 10 Mg/2.1 Ml Sdv) 2.5 mg IM Q4H PRN PRN Reason: agitation/aggression Stop: 06/07/23 20:44 Last Admin: 05/11/23 01:28 Dose: 2.5 mg Paroxetine HCl (Paroxetine Hcl 20 Mg Tab) 40 mg PO QAM ANABEL Stop: 06/09/23 08:59 Last Admin: 05/13/23 08:30 Dose: 40 mg Quetiapine Fumarate (Quetiapine Fumarate 100 Mg Tablet) 150 mg PO TID ANABEL Stop: 06/08/23 20:59 Last Admin: 05/13/23 08:30 Dose: 150 mg Quetiapine Fumarate (Quetiapine Fumarate 25 Mg Tablet) 25 mg PO Q6H PRN PRN Reason: Agitation Stop: 06/09/23 07:36 Last Admin: 05/13/23 03:52 Dose: 25 mg
[2023-05-13] MEDS ORDERED: DOCUSATE SODIUM 100 MG CAP PO STA (15:34)
[2023-05-13] MEDS: SENNA 8.6 MG TAB PO PRN (17:11)
--- NOTE | 2023-05-13 18:38 | Billing Data ---
Date of Service May 13, 2023 Coding Level of Care Code 90111 SUB INP/OBS CARE
[2023-05-13] MEDS: BACITRACIN OINT 14 GM TUBE EXT SCH ×2 (19:55→21:47)
[2023-05-13] MEDS: DOCUSATE SODIUM 100 MG CAP PO SCH (21:47)
[2023-05-13] MEDS: DONEPEZIL HCL 5 MG TAB PO SCH (21:48)
[2023-05-13] MEDS: MIRTAZAPINE TAB 15 MG TAB PO SCH (21:48)
[2023-05-13] MEDS: POLYETHYLENE (MIRALAX) 17 GM PACK PO SCH (21:49)
[2023-05-14] MEDS: DEXTROSE 5% IV SCH ×4 (01:10→17:49)
[2023-05-14] MEDS: VALPROATE SOD IV SCH ×4 (01:10→17:49)
--- NOTE | 2023-05-14 07:22 | Hospitalist Progress Note ---
Date of Service May 14, 2023 Assessment & Plan (1) Aggression: Plan: -Aggressive behavior at nursing home noted in context of progressive Alzheimer's dementia over past several years -Titrated valproate dose due to subtherapeutic valproate level- will order vero proic acid pending; plan to titrate to 80-120 mcg/mL per psych recommendations -Paroxetine increased to 40mg daily -cont. mirtazapine, Seroquel -cont. donepezil -prn seroquel and zyprexa for increased agitation -Psychiatry consulted -patient needs inpatient geropsychiatric treatment to get his behavioral disturbance under control and bed search should be started immediately (2) Dementia: Plan: see above (3) Hypoglycemia: Plan: -Noted hypoglycemia on admission to 60 - likely secondary to poor PO intake -was on dextrose containing fluids, glucose has remained stable since stopping (4) HLD (hyperlipidemia): Plan: -Continue statin (5) Superficial skin infection: Plan: -dermatology consulted; likely Eczematous dermatitis - improvement with clobetasol 0.05% ointment Admission and Anticipated Discharge Date Admission Date: May 08, 2023 Supervising Physician Co-Signing Physician Notes ATTESTATION I personally examined the patient and verified all clarke points of history and exam, discussed case, and agree with decision making with Dr Amezcua No issues today. Nursing notes that they even were able to help him get cleaned up and he took his medicinesno hostile or aggressive behaviors today. vitals noted laying in bed sleeping nad heent nc at mmm breathing unlabored no accessory muscles good effort skin no pallor or icterus IMPRESSION & PLAN Dementia with agitation,continue current care, working on geriatric psych bed; lives chronically in locked dementia unit Hypoglycemia, resolved eczematous rash Psychiatry consultation appreciated; Working on bed search for geriatric psych facility no scabies - eczematous per derm continue bowel regimen Subjective Resting comfortably. Awake, but not orientated. No acute distress. Review of Systems Review of Systems: As per above Physical Exam Physical Exam: Constitutional: well-appearing, no acute distress HEENT: NCAT, no conjunctival injection CV: regular rhythm, no murmur appreciated, extremities well-perfused, no LE edema Resp: CTABL, no wheezes/rales/rhonchi appreciated, no increased work of breathing GI: soft, nondistended, nontender MSK: no gross deformities appreciated Skin: warm, dry, + scattered erythematous papules and excoriations Neuro: no focal neurologic deficit appreciated Results & Data Results & Data Vital Signs (Past 12 Hours) Vital Signs Temp Pulse Pulse Resp BP Pulse Ox O2 Del Method 05/14/23 07:17 36.3 C L 66 18 151/85 H 99 Room Air 05/13/23 21:55 36.7 C 77 16 144/79 H 98 Room Air 05/13/23 21:47 Room Air Resident Activity Tracking Resident Involvement: Resident Care Provided Care Provided: Adult Hospital Medicine
[2023-05-14] MEDS: PARoxetine HCL 20 MG TAB PO SCH (07:43)
[2023-05-14] MEDS: DOCUSATE SODIUM 100 MG CAP PO SCH ×2 (07:43→21:14)
[2023-05-14] MEDS: POLYETHYLENE (MIRALAX) 17 GM PACK PO SCH ×2 (07:43→21:15)
[2023-05-14] MEDS: QUEtiapine FUMARATE 100 MG TABLET PO SCH ×3 (07:43→21:16)
[2023-05-14] MEDS: CLOBETASOL PROPIONATE 0.05% OINT 15 GM TUBE EXT SCH ×2 (07:44→21:13)
[2023-05-14] MEDS: BACITRACIN OINT 14 GM TUBE EXT SCH ×3 (07:44→21:14)
--- NOTE | 2023-05-14 20:14 | Billing Data ---
Date of Service May 14, 2023 Coding Level of Care Code 23979 SUB INP/OBS CARE
[2023-05-14] MEDS: DONEPEZIL HCL 5 MG TAB PO SCH (21:14)
[2023-05-14] MEDS: MIRTAZAPINE TAB 15 MG TAB PO SCH (21:15)
[2023-05-14] MEDS: SENNA 8.6 MG TAB PO PRN (21:17)
[2023-05-15] MEDS: DEXTROSE 5% IV SCH ×3 (01:57→13:00)
[2023-05-15] MEDS: VALPROATE SOD IV SCH ×3 (01:57→13:00)
--- NOTE | 2023-05-15 07:30 | Hospitalist Progress Note ---
Date of Service May 15, 2023 Assessment & Plan (1) Aggression: Plan: -Aggressive behavior at correction noted in context of progressive Alzheimer's dementia over past several years -Titrated valproate dose due to subtherapeutic valproate level- will order vero proic acid pending; plan to titrate to 80-120 mcg/mL per psych recommendations -Paroxetine increased to 40mg daily -cont. mirtazapine, Seroquel -cont. donepezil -prn seroquel and zyprexa for increased agitation -Psychiatry consulted -patient needs inpatient geropsychiatric treatment to get his behavioral disturbance under control and bed search should be started immediately (2) Dementia: Plan: see above (3) Hypoglycemia: Plan: -Noted hypoglycemia on admission to 60 - likely secondary to poor PO intake -was on dextrose containing fluids, glucose has remained stable since stopping (4) HLD (hyperlipidemia): Plan: -Continue statin (5) Superficial skin infection: Plan: -dermatology consulted; likely Eczematous dermatitis - improvement with clobetasol 0.05% ointment Admission and Anticipated Discharge Date Admission Date: May 08, 2023 Review of Systems Review of Systems: As per above Results & Data Results & Data Vital Signs (Past 12 Hours) Vital Signs Temp Pulse Resp BP Pulse Ox O2 Del Method 05/15/23 07:11 36.5 C 61 16 158/84 H 100 Room Air 05/14/23 21:13 Room Air 05/14/23 20:13 36.6 C 78 16 139/80 97 Room Air
[2023-05-15] MEDS: PARoxetine HCL 20 MG TAB PO SCH (09:01)
[2023-05-15] MEDS: SENNA 8.6 MG TAB PO PRN (09:01)
[2023-05-15] MEDS: POLYETHYLENE (MIRALAX) 17 GM PACK PO SCH (09:01)
[2023-05-15] MEDS: QUEtiapine FUMARATE 100 MG TABLET PO SCH ×2 (09:02→13:32)
[2023-05-15] MEDS: BACITRACIN OINT 14 GM TUBE EXT SCH (09:03)
[2023-05-15] MEDS: CLOBETASOL PROPIONATE 0.05% OINT 15 GM TUBE EXT SCH (09:03)
[2023-05-15] MEDS: DOCUSATE SODIUM 100 MG CAP PO SCH (09:03)
--- NOTE | 2023-05-15 14:00 | Discharge Summary ---
Date of Service May 15, 2023 Admission HPI Per Admitting Provider Martín is a 67 year old male with a PMH significant for Alzheimer's dementia, depression, HTN, hyperlidipemia, who presented to the [facility] ED via EMS from [facility] on 05/08/23 due to aggressive behavior towards staff. He reportedly was pulling the hear of one of the female caregivers at [facility]. He remained stable in the ED. Labs on arrival were unremarkable. While in the ED pending delegate evaluation to uphold 302 and begin bed search for locked dementia until the patient pulled his IV out and would not take oral medications. He had persistent hypoglycemia because of this and required IM haldol in order for IV access to be reestablished. Prior to admission the patient was given 150 mg PO Seroquel and started on -04/15 NSS at 125 mL/hr. At the time of the exam the patient was sleeping comfortable in bed after taking the PO seroquel. He wakes momentarily then falls back asleep. He was unable to provide any significant history. Please refer to Dr. Porter's attestation for any changes to the treatment plan Principal Diagnosis Dementia Discharge Exam Constitutional: well-appearing, no acute distress HEENT: NCAT, no conjunctival injection CV: regular rhythm, no murmur appreciated, extremities well-perfused, no LE edema Resp: CTABL, no wheezes/rales/rhonchi appreciated, no increased work of breathing MSK: no gross deformities appreciated Skin: warm, dry, + scattered erythematous papules and excoriations Neuro: no focal neurologic deficit appreciated Discharge Data Allergies Allergy/AdvReac Type Severity Reaction Status Date / Time Penicillins Allergy Unknown UNKNOWN ON Verified 12/01/22 18:26 [facility] risperidone Allergy Unknown UNKNOWN ON Verified 12/01/22 18:26 [facility] trazodone Allergy Unknown UNKNOWN ON Verified 12/01/22 18:26 [facility] prednisone AdvReac Agitated Verified 12/01/22 18:28 Consultations 05/08/23 20:18 ED Decision to Admit Stat 05/08/23 20:54 Consult Psychiatry Routine 05/11/23 10:30 Consult Dermatology Routine Ordered Studies 05/08/23 12:25 CT head/brain wo con Stat Hospital Course (1) Aggression: (1) Aggression: -Aggressive behavior at alf noted in context of progressive Alzheimer's dementia over past several years -Vaproic acid increased to 750mg qHS -Paroxetine increased to 40mg daily -cont. mirtazapine, Seroquel -cont. donepezil -prn seroquel and zyprexa for increased agitation. Has really only needed Seroquel -patient needs inpatient geropsychiatric treatment to get his behavioral disturbance under control and bed search should be started immediately (2) Dementia: see above (3) Hypoglycemia: -Noted hypoglycemia on admission to 60 - likely secondary to poor PO intake -was on dextrose containing fluids, glucose has remained stable since stopping (4) HLD (hyperlipidemia): -Continue statin (5) Superficial skin infection: -dermatology consulted; likely Eczematous dermatitis - improvement with clobetasol 0.05% ointment x 2 weeks (2) Dementia: (3) Hypoglycemia: (4) HLD (hyperlipidemia): (5) Superficial skin infection: Total Time Total Time Spent Total Time Spent (In Minutes): <30 Discharge Plan Discharge Items Patient Disposition: Transfer Behavioral Health Fac Reason For Visit: HYPOGLYCEMIA, NEED FOR LOCKED DEMENTIA UNIT Discharge Diagnosis: Dementia Activity: Per Instructions section Non-emergency contact: Primary Care Provider Call non-emergency contact if: you have any medication questions and your sympto ms worsen Follow-up/Referrals: Benitez Montgomery [Primary Care Provider] - Diet: Regular Addtl Attending Provider Instructions: (1) Aggression: -Aggressive behavior at alf noted in context of progressive Alzheimer's dementia over past several years -Vaproic acid increased to 750mg qHS -Paroxetine increased to 40mg daily -cont. mirtazapine, Seroquel -cont. donepezil -prn seroquel and zyprexa for increased agitation. Has really only needed Seroquel -patient needs inpatient geropsychiatric treatment to get his behavioral disturbance under control and bed search should be started immediately (2) Dementia: see above (3) Hypoglycemia: -Noted hypoglycemia on admission to 60 - likely secondary to poor PO intake -was on dextrose containing fluids, glucose has remained stable since stopping (4) HLD (hyperlipidemia): -Continue statin (5) Superficial skin infection: -dermatology consulted; likely Eczematous dermatitis - improvement with clobetasol 0.05% ointment x 2 weeks Pending Studies at Discharge: No Stand-Alone Forms: [facility] Medications and DC Order Prescriptions: New donepezil 5 mg Tablet 5 mg PO HS 30 Days Qty: 30 0RF mirtazapine 15 mg Tablet 7.5 mg PO HS Qty: 30 0RF olanzapine 10 mg Recon Soln 2.5 mg IM Q4H PRN (Reason: agitation) 30 Days Qty: 1 0RF quetiapine 25 mg Tablet 25 mg PO Q6H PRN (Reason: agatation ) 30 Days Qty: 30 0RF polyethylene glycol 3350 [Miralax] 17 gram Powder In Packet 17 g PO BID 30 Days Qty: 14 0RF quetiapine 100 mg Tablet 150 mg PO TID Qty: 30 0RF paroxetine HCl 20 mg Tablet 40 mg PO QAM Qty: 60 0RF docusate sodium 100 mg Capsule 100 mg PO BID 30 Days Qty: 60 0RF clobetasol 0.05 % Ointment 1 applic EXT BID 14 Days Qty: 15 0RF Continued acetaminophen [Tylenol] 325 mg Tablet 650 mg PO Q6H MDD 3 GRAMS APAP/24 HOURS PRN (Reason: PAIN/FEVER) atorvastatin 10 mg Tablet 20 mg PO DAILY thiamine HCl (vitamin B1) [Vitamin B-1] 100 mg Tablet 100 mg PO DAILY Multiple Vitamin-Minerals Tablet 1 tab PO DAILY cholecalciferol (vitamin D3) [Vitamin D3] 25 mcg (1,000 unit) Capsule 1,000 unit PO DAILY Senna Plus 8.6-50 mg Capsule 1 tab-cap PO HS aspirin 81 mg tablet,delayed release (DR/EC) 81 mg PO DAILY cetirizine 10 mg tablet 10 mg HS ammonium lactate 12 % Cream 1 applic TOPICAL BID Eucerin Cream 1 applic TOPICAL BID bisacodyl [Dulcolax (bisacodyl)] 10 mg Suppository 10 mg OK DAILY PRN (Reason: Constipation) acetaminophen 325 mg Tablet 650 mg Q6 PRN (Reason: Pain, Mild) Milk of Magnesia 1,200 mg suspension 1,200 mg PO DIRECTED MDD 30 mL PRN (Reason: Constipation) Rx Instructions: Give 30 mL PO. (1200 mg/15 mL) Changed divalproex [Depakote Sprinkles] 125 mg Capsule, Delayed Rel Sprinkle 750 mg PO .QHS Qty: 60 0RF Rx Instructions: One daily at night Held aripiprazole [Abilify] 5 mg Tablet 5 mg PO DAILY Hold Instructions: Held during this admission, pysch medications were changed Discontinued melatonin 3 mg Tablet 3 mg PO HS quetiapine [Seroquel] 100 mg Tablet 100 mg PO Q8 Rx Instructions: TOTAL DOSE 150 MG--TAKES WITH 50 MG TAB. paroxetine HCl 20 mg Tablet 20 mg PO DAILY mirtazapine 7.5 mg Tablet 7.5 mg PO HS quetiapine [Seroquel] 50 mg Tablet 50 mg PO Q8 Rx Instructions: TOTAL DOSE 150 MG--TAKES WITH 100 MG TAB. divalproex 125 mg capsule, delayed rel sprinkle 125 mg PO DAILY Rx Instructions: give 3 capsules by mouth one time a day related to vascular divalproex 125 mg capsule, delayed rel sprinkle 125 mg PO HS Rx Instructions: Give 3 capsules by mouth at bedtime quetiapine 100 mg tablet 25 mg PO BID PRN (Reason: Agitation) clindamycin HCl 300 mg capsule 300 mg PO Q8 Rx Instructions: 1 capsule every 8 hours for 10 days. Started on 04/29/2023 at 0800. Discharge Orders: Discharge Order (Routine); Ordered 05/15/23 Ordered By: Heather Amezcua Admission Data Admit Date/Time: 05/08/23 20:25 Attending Provider: Larry Dietrich Admit Provider: Samson Porter Primary Care Provider: Benitez Montgomery Other Providers: Samson Porter; Lizzette Zayas; Mayuri Hugo; Jonathan Licea; Van Silva; Edin Tee Supervising Physician Co-Signing Physician Notes ATTESTATION I personally examined the patient and verified all clarke points of history and exam, discussed case, and agree with decision making with Dr Amezcua for geriatric psych bed today vitals noted laying in bed sleeping nad heent nc at mmm breathing unlabored no accessory muscles good effort skin no pallor or icterus IMPRESSION & PLAN Dementia with agitation,continue current care, working on geriatric psych bed; lives chronically in locked dementia unit Hypoglycemia, resolved eczematous rash Psychiatry consultation appreciated; transfer to geriatric psych facility today no scabies - eczematous per derm continue bowel regimen Resident Activity Tracking Resident Involvement: Resident Care Provided Care Provided: Adult Hospital Medicine
--- NOTE | 2023-05-15 16:25 | Billing Data ---
Date of Service May 15, 2023 Coding Level of Care Code 39338 IN/OBS DISCH 30 MIN/LESS
== END 2023-05-15 14:09 | DRG 884 ==
LOC: ED 11:32 → SUATTDRO 20:25 → EDINP 20:25 → 2S 20:54 → 3E 05-10 22:32